=== PATIENT | male | born 1970 | race Hispanic/Latino ===

== ENCOUNTER → 2018-07-08 | Day surgery (SDC) | payer OTHER ==
[~2018-07-08] MED LIST: FENTANYL CITRATE/PF 100MCG/2 ML INJ ONE; KETAMINE HCL INJ 50 MG/ML 10 ML VIAL ONE; MIDAZOLAM HCL 2 MG/2 ML VIAL ONE; PROPOFOL IV EMULSION 10 MG/ML 50 ML VIAL ONE
[2018-07-08 11:25] VITALS: BP 168/90
== END | disposition home or self-care (01) ==
LOC: OR 06:02
PROVIDERS: ATTEND Internal Medicine Gastroenterology
DX: Z12.11 Encounter for screening for malignant neoplasm of colon (principal); D12.3 Benign neoplasm of transverse colon; Z80.0 Family history of malignant neoplasm of digestive organs; K21.9 Gastro-esophageal reflux disease without esophagitis; Z87.891 Personal history of nicotine dependence
CPT/HCPCS: 45384; 93005; J2250; J2704; 45378